=== PATIENT | male | born 1985 | race Caucasian/White ===

== ENCOUNTER 2022-10-15 07:14 | Day surgery (SDC) | payer OTHER, SELFPAY ==
[2022-10-15] VITALS (10 sets, daily range): BP systolic 120–148; BP diastolic 67–86; PULSE 80–96; RESP 12–18; TEMP 36.1–36.9; O2SAT 92–99
--- NOTE | 2022-10-15 | DI.RAD.S_ITS ---
PROCEDURE: XR LUMBAR SPINE 2-3V INDICATIONS: L5-S1 DISCECTOMY TECHNIQUE: 2 intraoperative fluoroscopic images obtained. COMPARISON: None. FINDINGS: Intraoperative fluoroscopic images from L5-S1 discectomy. IMPRESSION: Intraprocedural fluoroscopy was provided for guidance and anatomical localization. Please see the procedure report for further details. Dictated by: Lalo Iniguez M.D. on 10/15/2022 at 12:07 Approved by: Lalo Iniguez M.D. on 10/15/2022 at 12:08
[2022-10-15] MEDS: LACTATED RINGERS 1,000 ML 100 ML IV (08:05)
--- NOTE | 2022-10-15 08:20 | SUR.PREOP ---
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
--- NOTE | 2022-10-15 08:50 | PM.PREOP ---
Pre-operative Note COVID-19 COVID-19 status: Not tested Criteria for continued procedure: Expected advancement of disease process, Possibility delay results in more complex future surgery or treatment, Increased loss of function, Continuing or worsening of significant or severe pain, Deterioration of the patient's condition or overall health and Delay expected to result in less-positive ultimate med/surg outcome Interval Note History & Physical reviewed/Exam performed by Physician: Yes Changes to H&P: No
[2022-10-15] MEDS: CEFAZOLIN 2 GM/100 ML PREMIX 100 ML IV (09:15)
--- NOTE | 2022-10-15 09:30 | SUR.OPER ---
Prone on spine table, head in foam head support, padded chest and pelvic supports, gel pad at knees, lower legs supported by pillows; nipples, genitalia and toes free of pressure, arms secured on foam padded arm boards at <90 degrees abduction. Tape over blanket at thigh secured to table.
[2022-10-15] MEDS: BUPIVACAINE 0.25% (PF) 30 ML, EPINEPHrine 0.3 MG INJ (09:35)
[2022-10-15] MEDS: methylPREDNISolone acet DEPO 40 MG/ML VIAL INJ (09:37)
--- NOTE | 2022-10-15 10:12 | P.OP_ITS ---
Operative Date/Time/Diagnoses Date of procedure: 10/15/22 Time of procedure: 07:40 Pre-op diagnosis: 1. L5-S1 disc herniation 2. L5-S1 radiculopathy Post-op diagnosis: same Procedure & Clinicians Procedure: 1. L5-S1 left microdiscectomy 2. Utilization of microsurgical technique and operating microscope Same procedure as scheduled: Yes Indications: Patient has been having chronic back pain and worsening lumbar radiculopathy. Patient failed multiple conservative management with worsening pain weakness and numbness in his lower extremity. Patient has been having difficulty performing activity of daily living. After discussing risks benefits of treatment options, patient elected proceed with surgery. Surgeon: Alva Reyes Adzing And Boring Machine Feeder: Mamie Moura Click Yes if Unassisted: No Anesthesia Type: General Operative Notes Closure Type: primary Specimen(s): none sent Estimated Blood Loss (mL): 5 Blood products transfused: none Procedure in detail: Patient was seen in the preoperative area. Risks and benefits of the surgery was discussed with the patient. Informed consent was obtained from the patient and placed in the chart. Surgical site was marked. Patient was taken to the operative room. General anesthesia was administered. Prophylactic antibiotic was given to the patient less than 30 min before the incision was made. Patient was placed into a prone position on the Karan table. Patient's back was then prepped and draped in the sterile fashion. Time-out was performed at this time. Using AP and lateral C-arm imaging the interval between L5-S1 was identified and marked on patient's back. A 1 inch incision 1 in from midline was made on the left side. The fascia was incised in line with skin incision. Globus MARS retractors was placed inside the incision and docked onto the L5 lamina. Using microsurgical technique and operating microscope, a L5 laminotomy was performed using a Kerrison rongeur. Liagamentum flavum was resected at the site of the laminotomy. The disc space at L5-S1 was identified. Microdiscectomy was performed by incising the annulus with #11 blade. Microcurettes and pituitary was used to removed herniated disc fragments of disc from the epidural space. After the microdiskectomy was completed, the area medial lateral superior and inferior to the area of the microdiskectomy was inspected and explored using a micro curette. No other impinging structure was identified. The wound was then irrigated with sterile normal saline. 40 mg Depo-Medrol was placed into the epidural space. The deep fascia was closed with 1-0 Vicryl. The subcutaneous tissue was closed with 2-0 Vicryl. The skin was closed with 4-0 Monocryl. Patient tolerated the procedure well. There were no complications. Patient was transferred recovery room in stable condition. Complications: none Post-operative Condition: stable Disposition: PACU Plan for aftercare: Discharge to home
[2022-10-15] MEDS: HYDROMORPHONE 2 MG INJ IV ×2 (10:40→10:49)
[2022-10-15] MEDS: OXYCODONE IR 5 MG TABLET PO (10:59)
--- NOTE | 2022-10-17 14:13 | SUR.PHASEI ---
late Entry. 1mg Dilaudid IV given in PACU. 1MG wasted by Sandy Esparza RN and witness by Hetal Gaines RN
== END 2022-10-15 11:57 | disposition home or self-care (01) ==
PROVIDERS: PCP Family Medicine; Referring Provider Orthopaedic Surgery Orthopaedic Surgery of the Spine; Visit Provider Orthopaedic Surgery Orthopaedic Surgery of the Spine
PROC: (CPT 63030; principal; 2022-10-15 08:45)
DX: M51.16 Intervertebral disc disorders with radiculopathy, lumbar region (principal); I10 Essential (primary) hypertension
CPT/HCPCS: 63030; 72100; 76000; J0171; J0330; J0690; J1030; J1100; J1170; J2250; J2405; J2704; J3010